=== PATIENT | male | born 1960 | race Caucasian/White ===

== ENCOUNTER 2023-11-28 18:25 | Emergency (ER) | payer OTHER, SELFPAY ==
[2023-11-28 18:28] VITALS: BP 155/97
[2023-11-28 19:00] VITALS: BP 129/72
[2023-11-28 19:01] LABS: % Basophils 1.4 % (0-2); % Eosinophils 2.1 % (0-6); % Immature Granulocytes 0.5 % (0-0.5); % Lymphocytes 48.5 % (20.5-51.1); % Monocytes 8.6 % (1.7-9.3); % Neutrophils 38.9 % (42.2-75.2); Absolute Basophils 0.1 10^3/uL (0-0.2); Absolute Eosinophils 0.2 10^3/uL (0-0.7); Absolute Lymphocytes 3.8 10^3/uL (1.2-3.4); Absolute Monocytes 0.7 10^3/uL (0.1-0.6); Hematocrit 41.3 % (39.0-52.0); Hemoglobin 14.4 g/dL (13.0-18.0); Mean Corp Hgb Conc. 34.9 g/dL (33.0-37.0); Mean Corpuscular Volume 97.6 fL (80.0-94.0); Mean Platelet Volume 9.2 fL (7.4-10.4); Nucleated Red Blood Cells % 0 % (-); Platelet Count 237 10^3/uL (130-400); Red Blood Cell Count 4.23 10^6/uL (4.70-6.10); Red Cell Dist. Width 13.2 % (11.5-14.5); White Blood Cell Count 7.8 10^3/uL (4.8-10.8)
--- NOTE | 2023-11-28 19:13 | ED.GENMED ---
History of Present Illness
General
Chief Complaint: Alcohol Problem
Source: spouse
Exam Limitations: other (Intoxicated)
Time Seen by Provider: 11/28/23 18:28
Travel History
Have you had any contact with someone who has COVID-19?: Unable to Answer
Do you have any symptoms of coronavirus? Fever > 100 degrees, chills, cough, shortness of breath, sore throat, loss of taste or smell, muscle aches, or headache?: Unable to Answer
History of Present Illness
History of Present Illness:
This is a 63 year old male that is brought in by ambulance with intoxication. states that he normally drinks about a pint of Vodka daily. States that today he drank about a Quart. States that he has done this one other time. State that he has
not fallen. States that he does have a history of Depression and Bipolar that he is not medicated for and that he has never been hospitalized for this. Denies any fever, chills, chest pain, SOB, abd pain, nausea, vomiting, diarrhea, headache,
dizziness
Past History
Past History
ED Past Medical History: Psychiatric (Bipolar, Depression, ); Negative Asthma, HTN, Hypercholesterolemia or NIDDM
ED Past Surgical History: None
Social History
Tobacco: Non-smoker
Alcohol: Daily (Normally about a pint)
Drug: Marijuana
Personal:
Living: with family
Review of Systems
Review of Systems
Other source history: family
All Other Systems: ROS reviewed and negative except as documented in HPI and ROS
Constitutional: Reports no symptoms; Denies fever or chills
EENT: Reports no symptoms
Respiratory: Reports no symptoms; Denies cough or trouble breathing
Cardiac: Reports no symptoms; Denies chest pain
ABD/GI: Reports no symptoms; Denies abdominal pain, nausea, vomiting or diarrhea
: Reports no symptoms; Denies dysuria, frequency or urgency
Musculoskeletal: Reports no symptoms
Skin: Reports no symptoms
Neurological: Reports no symptoms; Denies dizzy or headache
Psychiatric: Reports no symptoms
Phy Exam
General Physical Exam
General Presentation: no apparent distress
General age: appears older than age
General Skin: warm and dry
General Habitus: normal
General Mental: appears intoxicated
General Hydration: appears well hydrated
ENT Exam
ENT Exam: TM's normal, pharynx normal and neck supple
Eye Exam
Eye Exam: EOMI
Cardiovascular Exam
Cardiovascular Exam: regular rate/rhythm, no edema, no murmur and normal peripheral pulses
Pulmonary Exam
Pulmonary Exam: lungs clear, no respiratory distress, no rales, chest non tender, no crackles, no rhonchi, no wheezing and no cough
Gastrointestinal Exam
Gastrointestinal Exam: normal bowel sounds, non tender, soft, no organomegaly, no pulsatile mass and non distended
Musculoskeletal Exam
Musculoskeletal Exam: full ROM and no edema
Skin Exam
Skin Exam: normal color, warm/dry, no rash and no petechia
Psychiatric Exam
Psychiatric Exam: other (Tearful)
Scores
Withdrawal Assessment of Alcohol
Withdrawal Assessment Completed?: Not applicable
Course
Orders/Labs/Results
Orders:
Orders
11/28/23 18:53
Alcohol Urgent
Complete Blood Count/With Diff Urgent
Comprehensive Metabolic Panel Urgent
Lipase Urgent
11/28/23 19:29
Urine Drug Abuse Screen Urgent
Date Specimen was Collected: 11/28/23
Time Specimen was Collected: 19:26
Abnormal Lab Results
11/28/23
18:53
RBC 4.23 L 10^6/uL
(4.70-6.10)
MCV 97.6 H fL
(80.0-94.0)
MCH 34.0 H pg
(27.0-31.0)
Absolute Lymphs (auto) 3.8 H 10^3/uL
(1.2-3.4)
Absolute Monos (auto) 0.7 H 10^3/uL
(0.1-0.6)
Neutrophils % 38.9 L %
(42.2-75.2)
Carbon Dioxide 20 L mmol/L
(22-30)
AST 131 H U/L
(17-59)
ALT 87 H U/L
(0-50)
Alcohol, Quantitative 422 H* mg/dl
11/28/23 18:53
11/28/23 18:53
Urine drug negative. Anemia, Carbon dioxide low. AST/ALT elevation (chronic alcoholic. Alcohol level 422. Lipase normal at 260
Vital Signs
Initial and Last Documented VS:
Initial Vital Signs
Pulse Resp BP Pulse Ox
130 18 155/97 94
11/28/23 18:28 11/28/23 18:28 11/28/23 18:28 11/28/23 18:28
Last Documented Vital Signs
Pulse Resp BP Pulse Ox
82 20 136/84 93
11/28/23 21:00 11/28/23 21:00 11/28/23 21:00 11/28/23 20:30
MDM/Problems Addressed
Differential Diagnosis Includes:
Alcohol abuse, Alcohol intoxication.
MDM/Problems Addressed:
This is a 63 year old male that comes in by ambulance with intoxication. states that the patient normally drinks a pint of Vodka daily but today he drank about a quart. States that he has Bipolar and depression but is not treated for either.
Will check labs give IV fluids.
Ihsan spoke with patient and . was given out patient information to help her. States that she is ready to take patient home. Will discharge as patient just keeps saying that he wants to go home.
Chronic conditions affecting care: Psychiatric illness
Acute Exacerbation and/or Progression of Chronic Illness:
Alcohol abuse
Acute Exacerbation and/or Progression of Chronic Illness: Psychiatric illness
*Pulse Oximetry
Patient hypoxic: no
*EKG
Interpreted by ED Provider?: NA
Rate: EKG- N/A
*Radio Communication Coordinator Interpretation
Rate: normal
Heart Rate: 96
Rhythm: sinus
*Critical Care Note
Total Time (30-74mins, 75-104mins- exclusive of procedures): Not Applicable
ED Attending Note
-
Portions of this chart may have been created with voice recognition software.� Occasional wrong word or��sound alike� substitutions may have occurred due to the inherent limitations of voice recognition software.
Discharge Plan
Departure
Patient Disposition: Home (Routine Discharge)
Date of Disposition: 11/28/23
Time of Disposition: 21:01
Patient with high blood pressure during this ER visit?: Yes
Condition: Good
Covid-19: Not Applicable
Discharge Problem:
Alcohol intoxication, Alcohol abuse
Instructions: Alcohol Use Disorder (DC), Alcohol Intoxication ED, BLOOD PRESSURE
Activity Restrictions/Additional Instructions:
As discussed, your blood work shows that you are anemic and that your Liver enzymes are elevated. This goes along with your alcohol abuse. You have seen [facility]. YOU NEED TO FOLLOW UP WITH THE FAMILY DOCTOR OR YOUR PSYCHIATRIST FOR FURTHER EVALUATION
AND TREATMENT. IF WOULD BE BETTER IF YOU WENT INPATIENT FOR DETOX. IF YOU HAVE ANY OTHER CONCERNS PLEASE RETURN TO THE EMERGENCY ROOM.
Interventions
Interventions:
*Risk Screen - Suicide Last Done: 11/28/23 18:46
*General Assessment Last Done: 11/28/23 18:46
*Neglect/Abuse Screening Last Done: 11/28/23 18:46
ED- Fall Risk Assessment Last Done: 11/28/23 18:49
*ED COVID-19 Vaccine History Last Done: 11/28/23 18:46
ED- Neurological Assessment Last Done: 11/28/23 18:49
ED-Psychological Assessment Last Done: 11/28/23 18:49
[2023-11-28 19:18] LABS: ALT (SGPT) 87 U/L (0-50); AST (SGOT) 131 U/L (17-59); Albumin 4.6 g/dl (3.5-5.0); Alkaline Phosphatase 87 U/L (38-126); Blood Urea Nitrogen 19 mg/dl (9-20); Calcium 9.6 mg/dl (8.4-10.2); Carbon Dioxide 20 mmol/L (22-30); Chloride 104 mmol/L (98-107); Glucose 99 mg/dl (70-99); Potassium 4.2 mmol/L (3.5-5.1); Sodium 143 mmol/L (135-145); Total Bilirubin 0.6 mg/dl (0.2-1.3); Total Protein 7.4 g/dl (6.3-8.2); eGFR > 60.00
[2023-11-28 19:19] LABS: Lipase 260 U/L (23-300)
[2023-11-28 19:34] LABS: Alcohol 422 mg/dl
[2023-11-28 20:00] VITALS: BP 132/72
[2023-11-28 20:04] LABS: Amphetamines Negative (Negative); Barbiturates Negative (Negative); Benzodiazepines Negative (Negative); Buprenorphine Negative (Negative); Cocaine Negative (Negative); Marijuana Negative (Negative); Methadone Negative (Negative); Methamphetamines Negative (Negative); Opiates Negative (Negative); Phencyclidine Negative (Negative); Tricyclic Antidepressants Negative (Negative)
[2023-11-28 21:00] VITALS: BP 136/84
== END 2023-11-28 21:33 | disposition home or self-care (01) ==
LOC: EMR 18:25
PROVIDERS: Clinical Nurse Specialist Family Health; EMERGENCY PHYSICIAN Emergency Medicine; FAMILY PHYSICIAN Family Medicine
DX: F10.129 Alcohol abuse with intoxication, unspecified (principal); F31.9 Bipolar disorder, unspecified
CPT/HCPCS: 99283; 80053; 80306; 82077; 83690; 85025